=== PATIENT | male | born 1990 | race Two or more races ===

== ENCOUNTER 2025-03-25 13:38 | Emergency (ER) | payer MEDICAID, OTHER ==
[~2025-03-25] VITALS: Ht 170.2 cm; Wt 82.4 kg
[2025-03-25 13:40] VITALS: TEMP 97.9
--- NOTE | 2025-03-25 14:25 | ED.PDOC ---
Musculoskeletal HPI Comments 34 year old male presents to the emergency department with a chief complaint of LT great toe pain onset 1 week. Patient states he was skateboarding, hit his LT great toe on the ground, since then has been experiencing pain. He noticed pain worsens with ambulation. No other symptoms or modifying factors present at this time. Denies previous surgeries to the foot Denies redness or swelling around the foot Denies fever chills night sweats nausea vomiting denies head injury, LOC Chief Complaint: Lower Extremity Time Seen by MD: 14:15 Reviewed Notes: Medications, Allergies Allergies: Coded Allergies: Ibuprofen (Verified Allergy, Unknown, RASH, 03/25/25) Information Source: Patient Mode of Arrival: Ambulatory Location: Left Extremity Location: Great Toe Timing: Weeks Prehospital treatment: None Severity: Moderate Able to Move Extremity: Yes Bear Weight: Fully Pain: Moderate Mechanism: Spontaneous Circumstances: Sporting Onset of Symptoms: After Trauma Symptoms: Pain DVT Risk Factors: NONE Associated signs and symptoms: Other Past Medical History PAST MEDICAL HISTORY: Denies Surgical History: Denies all surgeries Family History Family History: Reviewed,noncontributory to illness, No family hx of Cancer, No family hx of DM, No family hx of Heart nova, No family hx of HTN, No family hx ofKidney nova, No family hx of Liver nova, No family hx of Lung nova, No family hx of Stroke Social History Smoker: Non-Smoker Alcohol: Denies ETOH Use Drugs: Denies Drug Use Lives In: Home All Other Systems: Reviewed and Negative (as per HPI) Physical Exam General Appearance: Normal HEENT: Normal ENT Inspection, Pharynx Normal, TMs Normal Neck: Full Range of Motion, Non-Tender, Normal, Normal Inspection Respiratory: Chest Non-Tender, Lungs Clear, No Accessory Muscle Use, No Respiratory Distress, Normal Breath Sounds Cardiovascular: No Edema, No JVD, No Murmur, No Gallop, Normal Peripheral Pulses, Regular Rate/Rhythm Breast Exam: Deferred Gastrointestinal: No Organomegaly, Non Tender, No Pulsatile Mass, Normal Bowel Sounds, Soft Genitalia: Deferred Pelvic: Deferred Rectal: Deferred Extremities: No calf tenderness, Normal capillary refill, Normal inspection, Normal range of motion, Non-tender, No pedal edema Musculoskeletal : Apperance: Normal Neurologic: Alert, metal burnisher II-XII nml as Tested, No Motor Deficits, Normal Affect, Normal Mood, No Sensory Deficits Cerebellar Function: Normal Reflexes: Normal Skin: Dry, Normal Color, Warm Lymphatic: No Adenopathy Was a procedure done? Was a procedure done?: No Differential Diagnosis EXT Differential Diagnosis: Fracture, Sprain X-Ray, Labs, Meds, VS Vital Signs Date Time Temp Pulse Resp B/P (MAP) Pulse Ox O2 Delivery O2 Flow Rate FiO2 03/25/25 14:35 72 18 93 Room Air 03/25/25 14:35 72 18 98/61 (73) 98 03/25/25 13:40 97.9 93 18 101/67 95 97.9 [place] [address] Ph: [phone] DIAGNOSTIC IMAGING Diagnostic Imaging Report : [id number] Signed PATIENT: SOUTH STEELEOACCT: [id number] UNIT: [id number] : 1990 LOC: ER ROOM / BED: / AGE / SEX: 34 / M ADM STATUS: REG ER SERVICE 141 ORDERING PHYSICIAN: JAMAL KIM NP PROCEDURE(s): LFOOT - L FOOT 3 VIEW XRAY REASON: R/o fracture to L great toe ORDER NUMBER(s): [id number], ACCESSION NUMBER(s): [id number] Indication: R/o fracture to L great toe Technique: XY L FOOT 3 VIEW XRAYXY Comparison: None FINDINGS/IMPRESSION: No radiographic evidence for acute fracture or dislocation. No significant soft tissue edema. No radiopaque foreign body. Mild degenerative changes 1st MTP joint. ATED BY: GAETANO HUIZAR MD DICTATED DATE/TIME: 03/25/251456 SIGNED BY: GAETANO HUIZAR MD SIGNED DATE/TIME: 03/25/251456 CC: X-Ray, Labs, Meds, VS Comment 34 year old male presents to the emergency department with a chief complaint of LT great toe pain onset 1 week. Patient arrives alert and oriented, ABC's intact, afebrile, vital signs stable, saturating well in room air Diagnostic imaging ordered by me and results interpreted by radiology : XY L FOOT 3V: IMPRESSION: No radiographic evidence for acute fracture or dislocation. No significant soft tissue edema. No radiopaque foreign body. Mild degenerative changes 1st MTP joint. History and examination consistent w/ sprain X-rays ordered, read by radiologist and reviewed by me. Imaging shows no acute findings There are no signs of arterial or nerve damage Take IBU or OTC Tylenol w/ food as needed for pain Recommended heat therapy Reviewed RICE management Avoid heavy lifting or strenuous activity Recommended range of motion exercises and limit heavy activity for 1 week If no improvement advised patient to return to the emergency department for follow-up. Discussed possibility of a occult fracture Additional MDM Review of External, Non-ED records: External records reviewed. Discussion with independent historian (EMS, family) history obtained from the patient/parents (if applicable) at bedside Chronic conditions affecting care: None Social determinants of health affecting care: None I considered escalation of care to admission for this patient, however given the reassuring workup, the patient is safe for outpatient management. On reevaluation, patient had symptomatic improvement. Patient is stable for discharge at this time. External notes reviewed. Test results and diagnostic imaging interpreted. All diagnostic findings, discharge care, education and instructions provided Follow-up with PCP in 2 to 3 days Patient verbalized understanding and agreed to treatment plan Vital signs stable, afebrile, no acute distress noted Patient ambulatory with strong steady gait Advised to return precautions for any new or worsening symptoms, return to ER immediately for re-evaluation Patient is aware that the purpose of this visit was for an acute medical abdias gency requiring emergent stabilization. Chronic conditions, including malignancies have not been ruled out. Patient is instructed to follow up with PCP as directed and discharge instructions for continued care and workup. If unable to arrange follow-up, patient is to return to the emergency department for reassessment. Patient (parent or legal guardian if applicable) was given v erbal and written discharge instructions and acknowledges understanding. Time of 1ST Reevaluation: 14:45 Reevaluation 1ST: Improved Patient Education/Counseling: Diagnosis, Treatment Family Education/Counseling: No Family Present Departure 1 Departure Time of Disposition: 15:09 Impression: Primary Impression: Toe sprain Qualified Codes: S93.509A - Unspecified sprain of unspecified toe(s), initial encounter Disposition: 01 HOME / SELF CARE / HOMELESS Condition: Stable Discharged With: Self Critical Care Note Critical Care Time?: No Stability Stability form required: No Heart Score Heart Score: Heart Score Response (Comments) Value History N/A 0 EKG N/A 0 Age N/A 0 Risk Factors N/A 0 Troponin N/A 0 Total 0 I personally scribed for JAMAL KIM NP ([email or web address]) on 03/25/25 at 14:25. Electronically submitted by Soraya Simpson ([email or web address]). I personally scribed for JAMAL KIM NP ([email or web address]) on 03/25/25 at 15:10. Electronically submitted by Soraya Simpson ([email or web address]). JAMAL KIM NP Mar 25, 2025 14:25
[2025-03-25 14:35] VITALS: BP 98/61; PULSE 72; RESP 18; O2SAT 93
--- NOTE | 2025-03-25 14:57 | DVH ---
Indication: R/o fracture to L great toe Technique: XY L FOOT 3 VIEW XRAYXY Comparison: None FINDINGS/IMPRESSION: No radiographic evidence for acute fracture or dislocation. No significant soft tissue edema. No rad iopaque foreign body. Mild degenerative changes 1st MTP joint.
== END 2025-03-25 15:20 | disposition home or self-care (01) ==
LOC: ER 13:38
DX: S93.502A Unspecified sprain of left great toe, initial encounter (principal); Z88.6 Allergy status to analgesic agent; X58.XXXA Exposure to other specified factors, initial encounter; Y93.51 Activity, roller skating (inline) and skateboarding; Y92.89 Other specified places as the place of occurrence of the external cause; Y99.8 Other external cause status
CPT/HCPCS: 73630